=== PATIENT | male | born 1995 | race Caucasian/White ===

== ENCOUNTER 2017-05-31 15:07 | Emergency (ER) | payer OTHER ==
[2017-05-31] MEDS ORDERED: Bacitracin Zinc 1 Packet ONE (15:34)
== END 2017-05-31 15:40 | disposition home or self-care (01) ==
LOC: ERS 15:07
DX: S61.411A Laceration without foreign body of right hand, initial encounter (principal); S61.431A Puncture wound without foreign body of right hand, initial encounter; W26.0XXA Contact with knife, initial encounter; Y92.009 Unspecified place in unspecified non-institutional (private) residence as the place of occurrence of the external cause
CPT/HCPCS: 99283